=== PATIENT | male | born 1980 | race Caucasian/White ===

== ENCOUNTER 2016-09-22 13:59 | Observation (INO) | payer OTHER ==
[2016-09-22 15:14] LABS: % IMMATURE GRANULYOCYTES 0.2 % (0.0-1.1); ABSOLUTE IMMATURE GRANULOCYTES 0.02 10^3/uL (0.00-0.10); ADD DIFF? NO; ADD MORPH? NO; ADD SCAN? NO; ATYPICAL LYMPHOCYTE FLAG 10 (0-99); FRAGMENT RBC FLAG 0 (0-99); HEMOGLOBIN 17.4 g/dL (13.7-17.5); LEFT SHIFT FLG 0 (0-99); LIPEMIA HEMOLYSIS FLAG 90 (0-99); MEAN CELL HEMOGLOBIN 31.4 pg (27.9-34.1); MEAN CELL HEMOGLOBIN CONCENTR. 35.5 g/dL (32.4-36.7); MEAN CELL VOLUME 88.4 fL (81.5-99.8); MEAN PLATELET VOLUME 10.7 fL (8.7-11.7); PLATELET CLUMPS FLAG 0 (0-99); PLATELET COUNT 197 10^3/uL (150-400); RED BLOOD CELL COUNT 5.54 10^6/uL (4.40-6.38); RED CELL DISTRIBUTION WIDTH 12.2 % (11.5-15.2)
[2016-09-22 15:28] LABS: ALANINE AMINOTRANSFERASE 44 IU/L (21-72); ALBUMIN 5.2 g/dL (3.5-5.0); ALKALINE PHOSPHATASE 88 IU/L (38-126); ANION GAP 14 mEq/L (8-16); ASPARTATE AMINOTRANSFERASE 29 IU/L (17-59); BILIRUBIN,TOTAL 1.8 mg/dL (0.1-1.4); BILIRUBIN-CONJUGATED 0.6 mg/dL (0.0-0.5); BILIRUBIN-UNCONJUGATED 1.2 mg/dL (0.0-1.1); CALCIUM 10.6 mg/dL (8.5-10.4); CARBON DIOXIDE 22 mEq/l (22-31); CHLORIDE 103 mEq/L (97-110); GLOMERULAR FILTRATION RATE > 60; GLUCOSE 97 mg/dL (70-100); POTASSIUM 3.6 mEq/L (3.5-5.2); SODIUM 139 mEq/L (134-144); TOTAL PROTEIN 8.8 g/dL (6.3-8.2)
[2016-09-22] MEDS ORDERED: HYDROmorphONE/DILAUDID 1 MG/ML SYR IVP ONE (15:31)
[2016-09-22] MEDS ORDERED: ONDANSETRON 4 MG/2 ML VIAL IVP ONE (15:32)
[2016-09-22] MEDS ORDERED: IOPAMIDOL (ISOVUE-300) 100 ML BTL IV ONE (16:02)
[2016-09-22] MEDS ORDERED: ERTAPENEM 1 GM in NS 100 ML IV ONE (17:06)
--- NOTE | 2016-09-22 17:06 | CT ---
CT Scan of the Abdomen and Pelvis (With Contrast) History: Abdominal pain. Technique: Axial computed tomographic images of the abdomen and pelvis were obtained, with the uneve ntful intravenous administration of 90 mL Isovue-300 contrast. No oral or rectal contrast, which guadarrama its the study. Dose reduction techniques were utilized. Comparison: None. CT Abdomen Findings: Lung bases: No pleural effusion. Liver: Normal. Biliary system: No obstruction. Spleen: Calcified splenic granulomata, without splenomegaly. Pancreas: Normal. Adrenals: Normal. Kidneys: No obstruction or solid masses. Abdominal Aorta: No aneurysm. No bowel obstruction or ascites. Pericolonic inflammatory changes in the right paracolic gutter, with a few subcentimeter lymph nodes, appendicolith with gas in the appendix, which is mildly dilated up to 9 mm, with inflammatory thicke grace of the base of the appendix consistent with early acute appendicitis. No drainable abscess CT Pelvis Findings: No additional pelvic fluid collections. Bladder contour is unremarkable. Moderate degenerative disk disease at L4-L5, with disk space narrowing, osteophytes, and facet arthro gwen, resulting in at least moderate central canal stenosis. Bilateral femoral heads demonstrate ci rcumferential osteophytes, with joint space narrowing and cam deformity of the femoral head/neck palomo ons. Impression: 1. Early acute appendicitis. 2. No drainable abscess, bowel obstruction, or pneumoperitoneum. 3. L4-L5 degenerative disk disease and facet arthropathy resulting in at least moderate central catracho l stenosis. 4. Bilateral hip osteoarthritis, with cam deformities of the femoral necks. Findings and recommendations discussed with Emergency Department physician, Alexandra Chi, at 16 55 hours, on September 22, 2016. Final report concurs with initial preliminary interpretation.S
--- NOTE | 2016-09-22 17:21 | EDPHY ---
H & P Stated Complaint: epigastric pain since this am Time Seen by Provider: 09/22/16 14:47 HPI/ROS: Chief complaint: Abdominal pain History of present illness: This is a 35-year-old male who presents to the emergency department for evaluation of abdominal pain. Patient states it began last night. Today has been progressively worsening. He denies precipitating factors. He denies alleviating factors. He denies other associated signs or symptoms including no fevers, no nausea, vomiting or diarrhea, no urinary symptoms. Review of systems: A 10 point review of systems was obtained and other than described above was negative - Personal History Current Tetanus Diphtheria and Acellular Pertussis (TDAP): Yes - Medical/Surgical History Other PMH: knee surgery - Social History Smoking Status: Never smoked - Physical Exam Exam: General Appearance: Alert, no distress. Eyes: Pupils equal and round no pallor or injection. ENT, Mouth: Mucous membranes moist. Respiratory: There are no retractions, lungs are clear to auscultation. Cardiovascular: Regular rate and rhythm. Gastrointestinal: Bowel sounds are normal. There is diffuse tenderness, there is mild guarding. Neurological: Alert and oriented. Strength and sensation intact and symmetrical. Skin: Warm and dry, no rashes. Musculoskeletal: Neck is supple nontender. Extremities are symmetrical, full range of motion. Psychiatric: Patient is oriented X 3, there is no agitation. Constitutional: Initial Vital Signs Temperature (C) 36.4 C 09/22/16 14:17 Heart Rate 52 L 09/22/16 14:17 Respiratory Rate 18 09/22/16 14:17 Blood Pressure 115/89 H 09/22/16 14:17 O2 Sat (%) 99 09/22/16 14:17 O2 Delivery Mode Room Air Allergies/Adverse Reactions: No Known Allergies Allergy (Unverified 09/22/16 14:17) Home Medications: Medication Instructions Recorded NK [No Known Home Meds] 09/22/16 Medical Decision Making - Diagnostics Imaging: CT scan of the abdomen and pelvis concerning for an early appendicitis ED Course/Re-evaluation: Patient seen under the supervision of my secondary supervising physician Dr. Delfino Vallejo. Patient presents to the emergency department for evaluation of abdominal pain. Ultimately evaluation is concerning for an acute appendicitis. Patient is started on Invanz. Dr. Orlando Burns, general surgeon is consulted and will see patient. Plan has been discussed with the patient who voiced understanding and agreement with it. Differential Diagnosis: Included but not limited to gastritis, gastroenteritis, biliary tract disease, pancreatitis, colitis, appendicitis, urinary tract disease - Data Points Laboratory Results: Laboratory Results 09/22/16 15:00 09/22/16 15:00 09/22/16 15:00 WBC 8.89 10^3/uL (3.80-9.50) RBC 5.54 10^6/uL (4.40-6.38) Hgb 17.4 g/dL (13.7-17.5) Hct 49.0 % (40.0-51.0) MCV 88.4 fL (81.5-99.8) MCH 31.4 pg (27.9-34.1) MCHC 35.5 g/dL (32.4-36.7) RDW 12.2 % (11.5-15.2) Plt Count 197 10^3/uL (150-400) MPV 10.7 fL (8.7-11.7) Neut % (Auto) 83.0 H % (39.3-74.2) Lymph % (Auto) 10.2 L % (15.0-45.0) Hamilton % (Auto) 6.2 % (4.5-13.0) Eos % (Auto) 0.2 L % (0.6-7.6) Baso % (Auto) 0.2 L % (0.3-1.7) Nucleat RBC Rel Count 0.0 % (0.0-0.2) Absolute Neuts (auto) 7.37 H 10^3/uL (1.70-6.50) Absolute Lymphs (auto) 0.91 L 10^3/uL (1.00-3.00) Absolute Monos (auto) 0.55 10^3/uL (0.30-0.80) Absolute Eos (auto) 0.02 L 10^3/uL (0.03-0.40) Absolute Basos (auto) 0.02 10^3/uL (0.02-0.10) Absolute Nucleated RBC 0.00 10^3/uL (0-0.01) Immature Gran % 0.2 % (0.0-1.1) Immature Gran # 0.02 10^3/uL (0.00-0.10) Sodium 139 mEq/L (134-144) Potassium 3.6 mEq/L (3.5-5.2) Chloride 103 mEq/L (97-110) Carbon Dioxide 22 mEq/l (22-31) Anion Gap 14 mEq/L (8-16) BUN 15 mg/dL (7-23) Creatinine 1.0 mg/dL (0.7-1.3) Estimated GFR > 60 Glucose 97 mg/dL (70-100) Calcium 10.6 H mg/dL (8.5-10.4) Total Bilirubin 1.8 H mg/dL (0.1-1.4) Conjugated Bilirubin 0.6 H mg/dL (0.0-0.5) Unconjugated Bilirubin 1.2 H mg/dL (0.0-1.1) AST 29 IU/L (17-59) ALT 44 IU/L (21-72) Alkaline Phosphatase 88 IU/L (38-126) Total Protein 8.8 H g/dL (6.3-8.2) Albumin 5.2 H g/dL (3.5-5.0) Lipase 58.0 IU/L (23-300) Medications Given: Discontinued Medications Hydromorphone HCl (Dilaudid) 1 mg IVP EDNOW ONE Stop: 09/22/16 15:32 Last Admin: 09/22/16 15:50 Dose: 1 mg Ondansetron HCl (Zofran) 4 mg IVP EDNOW ONE Stop: 09/22/16 15:33 Last Admin: 09/22/16 15:51 Dose: 4 mg Departure - Departure Disposition: [facility] In[facility] Acute Clinical Impression: Acute appendicitis Qualifiers: Acute appendicitis type: unspecified acute appendicitis type Qualifier Code: ( K35.80) Unspecified acute appendicitis Condition: Good
[2016-09-22 17:26] LABS: COLOR YELLOW; LEUKOCYTE ESTERASE,URINE NEGATIVE (NEGATIVE); NITRITE,URINE NEGATIVE (NEGATIVE)
[2016-09-22] MEDS ORDERED: HYDROmorphONE/DILAUDID 2 MG/ML SYR IVP ONE (17:31)
[2016-09-22] MEDS ORDERED: HYDROmorphONE/DILAUDID 1 MG/ML SYR ONE (17:33)
[2016-09-22] MEDS ORDERED: HYDROmorphONE/DILAUDID 1 MG/ML SYR IVP PRN ×2 (20:27→22:09)
[2016-09-22] MEDS ORDERED: HEPARIN 1000 UNIT/1 ML MDV ONE (20:43)
[2016-09-22] MEDS ORDERED: BUPIVACAINE 0.5% 30 ML SDV ONE (20:43)
[2016-09-22] MEDS ORDERED: ceFAZolin 1 GM/5 ML SYR ONE (20:43)
--- NOTE | 2016-09-22 21:05 | GHP ---
[f rep st] PREOP HISTORY AND PHYSICAL DATE OF ADMISSION: 09/22/2016 HISTORY OF PRESENT ILLNESS: A 35-year-old male who is admitted at this time with abdominal pain. He describes the pain as more periumbilical, but he is tender in the right lower quadrant. He is admit kallie at this time for observation. CT scan suggests early appendicitis with an appendicolith in the a ppendix. He is afebrile with a normal white count, however, and will be admitted for observation. T he risks and options have been fully discussed with the patient, and I have told him that probably he will progress with continued pain and need to have his appendix out, but at this point we can watch. PAST MEDICAL AND SURGICAL HISTORY: Includes a knee scope. No other major surgeries or hospitalizati ons. REVIEW OF SYSTEMS: Negative for any serious medical problems including diabetes, asthma, heart troub le, epilepsy, peptic ulcer disease, and other problems. ALLERGIES: None. PRESENT MEDICATIONS: None. SOCIAL HISTORY: He does not smoke. PHYSICAL EXAMINATION: GENERAL: An alert, uncomfortable 35-year-old man in no acute distress. HEAD AND NECK: Negative for icterus or adenopathy. CHEST: Clear. CARDIAC: Regular rhythm. ABDOMEN: Soft, slightly distended. He does have bowel sounds. He is tender in the right lower quadrant with minimal guarding. There are no inguinal hernias. GENITALIA: Normal. EXTREMITIES: Full range of m otion. Full pulses. IMPRESSION: Possible appendicitis. PLAN: Admit for observation. /[id number]/MODL
[2016-09-22] MEDS ORDERED: CITRIC ACID/SODIUM CITRATE 30 ML UDCUP PO ONE (21:40)
[2016-09-22] MEDS ORDERED: fentaNYL 100 MCG/2 ML INJ IVP ONE (21:40)
[2016-09-22] MEDS ORDERED: fentaNYL 100 MCG/2 ML INJ ONE ×2 (21:42→21:55)
[2016-09-22] MEDS ORDERED: MIDAZOLAM 2 MG/2 ML VIAL ONE (21:44)
[2016-09-22] MEDS ORDERED: PROPOFOL/EMULSION 500 MG/50 ML BOTTLE IV ONE (21:55)
--- NOTE | 2016-09-22 22:02 | SOAPPROG ---
SOAP Progress Note Assessment/Plan: Assessment: PAIN PERSISTS AND HE WISHES TO PROCEED WITH LAP APPE TONITE RISKS AND OPTIONS FULLY DISCUSSED AND HE WISHES TO PROCEED Plan: LAPAPPE 09/22/16 22:01 Objective: Vital Signs Temp Pulse Resp BP Pulse Ox 37.2 C 81 15 116/59 L 95 09/22/16 18:07 09/22/16 18:07 09/22/16 18:07 09/22/16 18:07 09/22/16 18:07 ICD10 Worksheet Patient Problems: Problems Problem Status Diagnosed Acute appendicitis Acute
[2016-09-22] MEDS ORDERED: OXYCODONE/APAP 5/325 TAB PO PRN (22:11)
[2016-09-22] MEDS ORDERED: ROCURONIUM 50 MG/5 ML VIAL ONE ×2 (22:15)
[2016-09-22] MEDS ORDERED: D5W 1/2 NS W/ 20 KCl/L 1,000 ML IV SCH (22:15)
[2016-09-22] MEDS ORDERED: SUGAMMADEX SODIUM 200 MG/2 ML VIAL IVP ONE (22:26)
--- NOTE | 2016-09-23 00:06 | GOP ---
[f rep st] OPERATIVE REPORT DATE OF OPERATION: 09/22/2016 SURGEON: Bunny Burns MD PREOPERATIVE DIAGNOSIS: Acute appendicitis. POSTOPERATIVE DIAGNOSIS: Acute appendicitis. PROCEDURE PERFORMED: LAP APPE FINDINGS: The patient was found to have acute suppurative nonperforated appendicitis. DESCRIPTION OF PROCEDURE: The patient was taken to the operating room where he received satisfactory general endotracheal anesthesia by Dr. Ybarra, placed in supine position, and prepped and draped in the usual sterile fashion. A periumbilical incision was made. A Veress needle was inserted and pneumoperitoneum was established. Trocar was introduced. Laparoscope introduced. Adequate visualization was obtained. Two other trocars were placed in the lower abdomen under direct vision. The cecum was then rotated medially helping to visualize the appendix which was thickened and inflamed. The mesoappendix was divided with a Harmonic Scalpel until the base was skeletonized. It was then divided with the Endo-SOSA stapler and removed. It was placed in a specimen bag and extracted through the upper midline port site. Hemostasis was assured. The wound was irrigated. Trocars were removed under direct vision. Trocar sites were closed with 0 Vicryl for the fascia, 4-0 Monocryl subcuticular stitch for the skin. All layers were infiltrated with 0.5 % Marcaine. Blood loss was negligible. He was taken to the recovery room in good condition. PROCEDURE PERFORMED: Laparoscopic appendectomy. /[id number]/MODL MTDD
[2016-09-23] MEDS: KETOROLAC 15 MG/1 ML SDV IVP SCH ×2 (00:30→05:29)
[2016-09-23 04:03] VITALS: RESP 14
[2016-09-23 08:09] VITALS: BP 102/63; PULSE 87; TEMP 98.6; O2SAT 96
[2016-09-23] MEDS ORDERED: ERTAPENEM 1 GM in NS 100 ML IV SCH (09:00)
--- NOTE | 2016-09-23 09:43 | SOAPPROG ---
SOAP Progress Note Assessment/Plan: Assessment: 35yo M POD#1 s/p lap appy for acute appendicitis Pain improved Tolerating clears. Advance diet to regular +flatus D/c home today - Avoid heavy lifting, pushing or pulling x2 weeks. Follow up with Dr. Burns [address] Burns S: Feeling improved today. Pain controlled and tolerating diet O: Lying in bed, comfortable, NAD, at bedside No increased work of breathing Positive bowel sounds throughout, softly distended, tender around incisions. Incisions clean, dry and intact without evidence of infection Objective: Vital Signs Temp Pulse Resp BP Pulse Ox 37.0 C 87 14 102/63 96 09/23/16 08:00 09/23/16 08:00 09/23/16 08:00 09/23/16 08:00 09/23/16 08:00 09/22/16 09/23/16 09/24/16 05:59 05:59 05:59 Intake Total 1200 Output Total 10 Balance 1190 ICD10 Worksheet Patient Problems: Problems Problem Status Diagnosed Acute appendicitis Acute
== END 2016-09-23 10:59 | disposition home or self-care (01) ==
LOC: INTOOBSV 17:08 → F3E 18:01
PROVIDERS: ADMIT Surgery; ATTEND Surgery
PROC: 0DTJ4ZZ Resection of Appendix, Percutaneous Endoscopic Approach (ICD-10-PCS; principal; 2016-09-22 21:48)
DX: K35.80 Unspecified acute appendicitis (principal); M16.0 Bilateral primary osteoarthritis of hip; M51.36 Other intervertebral disc degeneration, lumbar region
CPT/HCPCS: 44970; 74177; 96365; 96375; 96376; 99285; G0378; J1170; J1335; J1885; J2250; J2405; J2704; J3010; Q9967